=== PATIENT | male | born 2000 | race Two or more races ===

== ENCOUNTER → 2019-07-26 | Emergency (ER) | payer OTHER ==
[~2019-07-26] VITALS: Ht 177.8 cm; Wt 79.4 kg
[~2019-07-26] MED LIST: MUCINEX FAST-M180 M2
== END | disposition home or self-care (01) ==
LOC: ER 12:07
DX: J06.9 Acute upper respiratory infection, unspecified (principal); R05 Cough; R09.81 Nasal congestion; R51 Headache; R07.0 Pain in throat